=== PATIENT | female | born 1970 | race Caucasian/White ===

== ENCOUNTER 2021-06-23 13:40 | Emergency (ER) | payer OTHER, SELFPAY ==
[2021-06-23 13:50] VITALS: BP 157/81; PULSE 81; RESP 14; TEMP 37.7; O2SAT 100
--- NOTE | 2021-06-23 14:01 | ED.SKABFB ---
HPI - Skin/Abscess/Foreign Bdy General Chief complaint: Skin/Abscess/Foreign Body Stated complaint: left side of lip/face swollen Time Seen by Provider: 06/23/21 14:10 Source: patient and RN notes reviewed Mode of arrival: ambulatory Limitations: no limitations History of Present Illness HPI narrative: 51-year-old female presents with concern for left lower lip swelling. Reports noticing it at 4 AM when she was awakened in the middle the night due to the swelling and pain. She denies injury or trauma. Reports history of similar incidents with her left upper lip 3 weeks ago. She denies any known allergens. She denies tongue swelling, itching, difficulty breathing, difficulty swallowing, rash in any area. Reports she has been using Benadryl and the swelling is slightly improved. She denies current pain, fluctuant areas, drainage. MD complaint: other (Facial swelling) Related Data Home Medications Medication Instructions Recorded Confirmed desog-e.estradiol/e.estradiol 1 tablet PO DAILY 06/23/21 06/23/21 [Gopi (28)] levothyroxine 13 mcg PO DAILY 06/23/21 06/23/21 Allergies Allergy/AdvReac Type Severity Reaction Status Date / Time No Known Allergies Allergy Verified 06/23/21 13:58 Review of Systems Review of Systems: CONSTITUTIONAL: Denies malaise, chills, sweats, or fever. EYES: Denies visual changes, redness, or discharge. ENT: Denies rhinorrhea, congestion, sinus pain, otalgia, swollen tongue, difficulty swallowing, sore throat. CARDIOVASCULAR: Denies chest pain, palpitations, or edema. RESPIRATORY: Denies cough or dyspnea. SKIN: Reports left lower lip swelling All systems reviewed & are unremarkable except as noted in HPI and below PMFSH Comments At time of signature, agree with nursing past medical, surgical, social and family history. There is no relevant family history pertinent to the presenting complaint Exam Narrative: GENERAL: Well-appearing, well-nourished, and in no acute distress. HEAD: Normocephalic, atraumatic. EYES: PERRLA, conjunctivae clear, and EOMI. ENT: Nares clear, turbinates pink, no rhinorrhea or epistaxis. Mucous membranes moist. Oropharynx without erythema or lesions. Tonsils not enlarged and without exudate. No angioedema noted. NECK: Supple. CHEST: No respiratory distress. Clear to auscultation. No bony deformities, no asymmetry. Speaks in full sentences. HEART: Regular rate and rhythm. No murmur heard. SKIN: Warm, dry, no rash. Mild left lower lip edema noted, isolated to the left side., Soft no mucocele or fluctuant areas noted. NEURO: Alert and oriented x3. PSYCH: Normal mood and affect Course Course Emergency Course: Patient is aware of diagnosis, understands and agrees to treatment plan. Anticipatory guidance given. Patient agrees to follow-up as directed and is aware of reasons to seek care at the emergency department. Portions of this record may have been created with voice recognition software Vital Signs Vital signs: Vital Signs Temperature 99.8 F H 06/23/21 13:50 Pulse Rate 81 06/23/21 13:50 Respiratory Rate 14 06/23/21 13:50 Blood Pressure 157/81 H 06/23/21 13:50 Pulse Oximetry 100 06/23/21 13:50 Temperature 99.8 F H 06/23/21 13:50 Pulse Rate 81 06/23/21 13:50 Respiratory Rate 14 06/23/21 13:50 Blood Pressure 157/81 H 06/23/21 13:50 Pulse Oximetry 100 06/23/21 13:50 Reviewed. Patient has been instructed to follow up with her primary care provider within the next week regarding her elevated blood pressure today. MDM - Skin/Abscess/Foreign Bdy MDM Narrative Medical decision making narrative: No soft palate or uvula edema, no tongue or lip edema or other mucosal involvement, no respiratory compromise, no stridor, no wheezing, no wheezing, no history of syncope, no hypotension, no nausea, vomiting, or diarrhea. Critical Care Time Critical Care Time Critical Care Time: No Discharge Plan Discharge Clinical Impression:
== END 2021-06-23 14:30 | disposition home or self-care (01) ==
PROVIDERS: Emergency Provider Nurse Practitioner; PCP Physician Assistant
DX: R22.0 Localized swelling, mass and lump, head (principal); E05.00 Thyrotoxicosis with diffuse goiter without thyrotoxic crisis or storm
CPT/HCPCS: 99211; G0463

== ENCOUNTER 2021-08-30 15:44 | Outpatient (CLI) | payer OTHER, SELFPAY ==
--- NOTE | ~2021-08-30 | US_ITS ---
EXAMINATION: US axilla RT INDICATION: Right upper arm pain TECHNIQUE: High-resolution ultrasound of the right arm is performed in the area of clinical concern COMPARISON: None available FINDINGS: No suspicious cystic or solid mass is identified. There is no sonographic correlate for the patient's right arm pain. IMPRESSION: 1. No sonographic correlate for the patient's symptoms. Reviewed, dictated and finalized at location B.
== END 2021-08-30 15:45 | disposition home or self-care (01) ==
LOC: CHSIMG 15:59
PROVIDERS: PCP Physician Assistant; Visit Provider Physician Assistant
DX: M79.621 Pain in right upper arm (principal)
CPT/HCPCS: 76882

== ENCOUNTER 2023-08-21 17:04 | Emergency (ER) | payer OTHER, SELFPAY ==
[2023-08-21 17:08] VITALS: BP 140/81; PULSE 100; RESP 18; TEMP 36.8; O2SAT 100
--- NOTE | 2023-08-21 17:43 | ED.URI ---
HPI - URI/Sore Throat General Chief Complaint: Upper Respiratory Infection Stated Complaint: sore throat Time Seen by Provider: 08/21/23 17:25 Source: patient, RN notes reviewed and old records reviewed Mode of arrival: ambulatory Limitations: no limitations History of Present Illness HPI Narrative: 53 [facility] with complaints of sinus congestion, drainage for the past 7-10 days. Patient states 2 days ago started having sore throat with burning increased pain with swallowing. Patient has occasional productive cough which is productive of greenish tinged mucus. Patient does say also that nasal drainage is greenish tinged also. Patient reports that she has had sore throat for about 2 days with throat burning and painful swallowing. Patient reports that she took HOME COVID tests X2 which were negative. MD elicited complaint: cough, sore throat, rhinorrhea, nasal congestion and sinus pain Pertinent past history: other (breast cancer) Onset (ago): day(s) (7--10 days) Pain scale (0-10): 8 Description of mucous: green Able to tolerate fluids by mouth: Yes Treatments prior to arrival: other (DayQuil, Robitussin, cough drops.) Related Data Home Medications Medication Instructions Recorded Confirmed levothyroxine 13 mcg capsule 13 mcg PO DAILY 06/23/21 08/21/23 amlodipine 5 mg tablet 5 mg PO DAILY 08/21/23 08/21/23 cyclobenzaprine 10 mg tablet 10 mg PO TID PRN pain 08/21/23 08/21/23 desogestrel-e.estradiol 0.15 See Rx Instructions .Route .COMPLEX 08/21/23 08/21/23 mg-0.02 mg(21)/e.estrad 0.01 mg(5) tablet (Kariva (28)) gabapentin 300 mg capsule 300 mg PO TID 08/21/23 08/21/23 lisinopril 20 mg tablet 20 mg PO DAILY 08/21/23 08/21/23 lorazepam 2 mg tablet 2 mg PO TID PRN Pain 08/21/23 08/21/23 methimazole 10 mg tablet 10 mg PO DAILY 08/21/23 08/21/23 naproxen 500 mg tablet 500 mg PO BID PRN Pain 08/21/23 08/21/23 tramadol 50 mg tablet 50 mg PO BID PRN Pain 08/21/23 08/21/23 Allergies Allergy/AdvReac Type Severity Reaction Status Date / Time No Known Allergies Allergy Verified 08/21/23 17:23 Review of Systems Review of Systems: CONSTITUTIONAL: Reports malaise, no chills, sweats, or fever. EYES: Denies visual changes, redness, or discharge. ENT: Reports rhinorrhea, congestion, sinus pain,right otalgia and sore throat. CARDIOVASCULAR: Denies chest pain, palpitations, or edema. RESPIRATORY: Reports occasional cough.? Denies dyspnea. GASTROINTESTINAL: Denies abdominal pain, nausea, vomiting, diarrhea SKIN: Denies rash or itching. MUSCULOSKELETAL: Denies myalgia. NEUROLOGIC: Denies headache. All systems reviewed & are unremarkable except as noted in HPI and below PMFSH Past Medical History Medical History (Updated 08/22/23 @ 22:33 by Fauzia Akers NP) Breast cancer right mastectomy chemo and radiation History of Graves' disease Hypertension Leg fracture, right ORIF Surgical History Surgical History (Updated 08/22/23 @ 22:31 by Fauzia Akers NP) H/O total mastectomy of right breast History of breast reconstruction Social History Social History (Updated 08/21/23 @ 17:51 by Fauzia Akers NP) Smoking status: Never smoker Alcohol intake: current Alcohol use details: rare social Substance use type: does not use Living arrangements: with family Gender identity (if verbalized by the patient): Female Comments At time of signature, agree with nursing past medical, surgical, social and family history. There is no relevant family history pertinent to the presenting complaint Exam Narrative: GENERAL: Well-appearing, well-nourished, and in no acute distress. HEAD: Normocephalic EYES: PERRLA, conjunctivae clear ENT: Nares clear, turbinates edematous and erythematous, green tinged discharge, sinus pain. Mucous membranes moist. TM pearly whittaker with dull light reflex bilaterally; no tragal tenderness. Oropharynx erythematous without lesio
== END 2023-08-21 18:00 | disposition home or self-care (01) ==
PROVIDERS: Emergency Provider Registered Nurse; PCP Physician Assistant
DX: J32.9 Chronic sinusitis, unspecified (principal); J02.9 Acute pharyngitis, unspecified; E05.00 Thyrotoxicosis with diffuse goiter without thyrotoxic crisis or storm; I10 Essential (primary) hypertension; Z85.3 Personal history of malignant neoplasm of breast; Z90.11 Acquired absence of right breast and nipple; Z92.21 Personal history of antineoplastic chemotherapy; Z92.3 Personal history of irradiation
CPT/HCPCS: 87081; 87880; 99213; G0463